=== PATIENT | male | born 1950 | race Caucasian/White ===

== ENCOUNTER 2018-10-16 19:07 | Emergency (ER) | payer MEDICARE, OTHER ==
[2018-10-16] MEDS ORDERED: LIDOCAINE HCL 1% PF 50MG/5ML AMP (IM/SUTURE/PAIN CLINIC) IJ ONE (19:48)
[2018-10-16] MEDS ORDERED: cefTRIAXone SODIUM 1 GM INJ IM ONE (19:48)
--- NOTE | 2018-10-16 19:51 | ED Physician Documentation ---
General Adult - HISTORIAN Historian: patient - HPI Stated Complaint: sore on rt levin Chief Complaint: General Adult Onset: days ago (2) Timing: still present Severity: moderate - ROS CONST: denies: fever EYES/ENT: denies: sore throat CVS/RESP: denies: chest pain, shortness of breath GI/: denies: abdominal pain MS/SKIN/LYMPH: denies: rash NEURO/PSYCH: denies: headache - PAST HX Past History: hypertension Other History: diabetes Type 2 Surgeries/Procedures: none Allergies/Adverse Reactions: Allergies Allergy/AdvReac Type Severity Reaction Status Date / Time No Known Allergies Allergy Verified 10/16/18 19:37 Home Medications: Ambulatory Orders Medication Instructions Recorded Amoxicillin/Potassium Clav 1 each PO BID #14 tablet 10/16/18 [Augmentin 875-125 Tablet] - SOCIAL HX Smoking History: non-smoker Alcohol Use: none Drug Use: none - FAMILY HX Family History: No - VITAL SIGNS Vital Signs: Vital Signs Temp Pulse Resp BP Pulse Ox 98.2 F 84 16 184/81 98 10/16/18 19:07 10/16/18 19:07 10/16/18 19:07 10/16/18 19:07 10/16/18 19:07 - REVIEWED ASSESSMENTS Nursing Assessment Reviewed: Yes Vitals Reviewed: Yes ED Results Lab/Radiology - Orders Orders: ED Orders Category Date Time Status Lidocaine 1% 5ml(IM or SUTURE) [Xylocaine] Med 10/16/18 19:48 Once 50 mg IJ NOW ONE cefTRIAXone SODIUM [Rocephin] Med 10/16/18 19:48 Once 1 gm IM NOW ONE General Adult Physical Exam - PHYSICAL EXAM GENERAL APPEARANCE: no distress EENT: PRAMOD NECK: supple RESPIRATORY: no resp distress, chest non-tender, breath sounds normal CVS: reg rate & rhythm, heart sounds normal ABDOMEN: soft, normal bowel sounds BACK: normal inspection SKIN: warm/dry EXTREMITIES: non-tender, other (right lower extremity with 1 cm round ucleration mid tib/fib ) NEURO: oriented X3, motor nml Discharge Clincal Impression: Diabetic leg ulcer Prescriptions: Amoxicillin/Potassium Clav [Augmentin 875-125 Tablet] 1 each PO BID #14 tablet Referrals: Primary Doctor,No [Primary Care Provider] - 2 Days Additional Instructions: 1. Take antibiotics as directed 2. Tylenol as needed for pain/fever 3. Follow up with Dr. Hidalgo as already scheduled on Thursday 4. Return to ED if wound gets bigger, has more redness or has yellow discharge. Condition: Stable Disposition: 01 HOME, SELF-CARE Decision to Admit: NO Date of Decison to Admit: 10/16/18 Decision Time: 19:54
[2018-10-16 20:31] VITALS: BP 179/83
== END 2018-10-16 20:04 | disposition home or self-care (01) ==
LOC: SUPCPDRO 19:07 → ED 19:07
DX: E11.622 Type 2 diabetes mellitus with other skin ulcer (principal); L97.819 Non-pressure chronic ulcer of other part of right lower leg with unspecified severity
CPT/HCPCS: 96372; 99282; 99283; J0696

== ENCOUNTER 2018-11-17 11:01 | Outpatient (CLI) | payer MEDICARE, OTHER ==
[2018-11-17 11:49] LABS: eGFR (Non-African) > 60
--- NOTE | 2018-11-17 12:33 | Diagnostic Imaging Report ---
SAVANNAH SARMIENTO [facility] [address] [facility] [address] [place] [id number] Report Submission Date: Nov 17, 2018 11:57:56 AM SOUND ENGINEER AUDIO CONTROL Patient Study Name: ANGEL FISCHER Date: Nov 17, 2018 11:19:17 AM SOUND ENGINEER AUDIO CONTROL Modality Type: DX Gender: M Description: PELVIS : 46 Institution: [facility] Physician: SAVANNAH SARMIENTO Examination: Plain film pelvis/right hip History: HIP PAIN, PT STATES HE FEELS IT COMES FROM HIS LOWER BACK, NO TRAUMA Comparison exams: None provided Findings: 3 views of the pelvis and right hip demonstrate normal cortical margins. Mild degenerative spurring. No fracture no dislocation. No soft tissue abnormality. Impression: Mild degenerative spurring. No acute appearing osseous abnormality. Electronically signed on Nov 17, 2018 11:57:56 AM SOUND ENGINEER AUDIO CONTROL by: Timothy SINGH
== END 2018-11-17 11:03 ==
LOC: LAB 11:01
PROVIDERS: ATTEND Family Medicine
DX: E11.9 Type 2 diabetes mellitus without complications (principal); Z12.5 Encounter for screening for malignant neoplasm of prostate; M25.751 Osteophyte, right hip; M25.551 Pain in right hip
CPT/HCPCS: 36415; 73502; 80053; 80061; 83036; G0103

== ENCOUNTER 2019-01-31 11:32 | Day surgery (SDC) | payer MEDICARE, OTHER ==
[~2019-01-31 11:32] MED LIST: LACTATED RINGERS 1,000 ML IV.SOLN IV ONE; LIDOCAINE HCL 2% PF 100MG/5ML VIAL IJ ONE; PROPOFOL 200 MG/20 ML VIAL IV ONE
--- NOTE | 2019-02-10 11:05 | GI Report ---
REFERRING PHYSICIAN: Dr. Hidalgo. PROCEDURE PERFORMED: Colonoscopy and polypectomy. SURGEON: Kala Hester M.D., F.Ab.C.P. INDICATION FOR PROCEDURE: The patient is a 68-year-old referred for screening colonoscopy. There are a number of cancers in the family. The patient has been diabetic for a number of years. He also does have some coronary artery disease. He denies recent chest pain. He does have central obesity. He is 510, weighs 212. Lungs: Clear at present. Heart: Regular. Abdomen: Soft. PROCEDURE MEDICATION: Propofol as per Anesthesia. DESCRIPTION OF PROCEDURE: The Olympus video colonoscope was advanced to the rectum. It was a fairly atonic, redundant colon, and was advanced to the cecum. It was a slow process. In the ascending colon within 3-4 cm of the cecum there was a 4 mm flat polyp removed with a cold snare. The appendiceal orifice was clear. The ileocecal valve was normal. On slow withdrawal through the cecum, ascending colon, no additional lesions noted outside of the polyp from the proximal ascending. The descending colon and sigmoid, again a lot of redundancy. We went back and forth several times and used some lavage. No obvious intraluminal lesions were noted. The patient tolerated the procedure well. FINDINGS: 1. Ascending colon polyp, removed. 2. Atonic, redundant colon, probably related to longstanding diabetes. RECOMMENDATIONS: 1. Would add Benefiber or MiraLAX daily to his diet. 2. Stay on a diabetic diet with increased fruits, vegetables. 3. Pending the pathology of the polyp, consider relooking at his colon in 5 years. KALA HESTER M.D., F.A.C.P. JEFFERY/gin R: 02/10/19 Job#: [id number] Cc: Dr. Hidalgo. [facility]ALTHPatrick
== END 2019-01-31 13:40 | disposition home or self-care (01) ==
LOC: OPSURG 11:32
PROVIDERS: ATTEND Internal Medicine Gastroenterology
DX: Z12.11 Encounter for screening for malignant neoplasm of colon (principal); D12.2 Benign neoplasm of ascending colon; K59.8 Other specified functional intestinal disorders
CPT/HCPCS: 45385; 88305; J2001; J2704; J7120; S1016

== ENCOUNTER 2019-02-16 09:28 | Outpatient (CLI) | payer MEDICARE, OTHER ==
[2019-02-16 09:48] LABS: MEAN CORPUSCULAR HEMOGLOBIN 31.3 pg (28.0-34.0)
[2019-02-16 09:49] LABS: BASOPHILS % 1.3 % (0.0-1.5); EOSINOPHILS % 1.7 % (0.0-6.8); MONOCYTES % 6.1 % (0.0-11.0); NEUTROPHILS # 4.2 # k/uL (1.4-7.7)
[2019-02-16 10:16] LABS: eGFR (Non-African) > 60
== END 2019-02-16 09:30 ==
LOC: LAB 09:28
PROVIDERS: ATTEND Family Medicine
DX: E11.9 Type 2 diabetes mellitus without complications (principal); R10.12 Left upper quadrant pain
CPT/HCPCS: 36415; 80048; 83036; 85025

== ENCOUNTER 2019-02-18 09:20 | Outpatient (CLI) | payer MEDICARE, OTHER ==
--- NOTE | 2019-02-18 21:50 | Diagnostic Imaging Report ---
SAVANNAH SARMIENTO [facility] [address] [facility] [address] [place], [place]. [address] Report Submission Date: Feb 18, 2019 11:01:58 AM CDT Patient Study Name: VAN FISCHER Date: Feb 18, 2019 9:49:51 AM CDT Modality Type: CT\SR Gender: M Description: CT ABD PELVIS W/ CON : 46 Institution: [facility] Physician: SAVANNAH SARMIENTO Exam: CT abdomen and pelvis with contrast. History: Left upper quadrant pain for 2 years. Axial images through the abdomen and pelvis with oral contrast and after IV infusion of 90 mL Omnipaque 300 is submitted along with sagittal coronal reformatted images. Subtle infiltrate in the medial basilar portion of the posterior right lower lung field is noted. No courtney consolidation or effusion is seen. No free intraperitoneal air is identified. The gallbladder is partially distended without stones. The liver and spleen are normal in attenuation and enhancement. The pancreas is normal in configuration with a single punctate calcification noted in its mid body. The adrenal glands are normal configuration. The abdominal aorta is of normal caliber. No periaortic lymphadenopathy is identified. Punctate calcifications in the lower and upper pole of the left kidney is noted. No hydronephrosis or hydroureter is identified. Both kidneys are normal attenuation and enhancement. Urinary bladder is distended without stones. In the left side of pelvis there is a rim calcified low attenuation structure measuring 2.5 x 2.5 x 1.7 cm which may represent a calcified lipoma. Small bowel is of normal caliber. Air and stool seen throughout the large intestine. The appendix is not well visualized. No inflammatory changes in the mesentery or ascites is identified. Bilateral inguinal hernias contain only fat. Degenerative changes in the lower thoracic spine and lower lumbar spine are noted. No other bony abnormalities are identified. Impression: Extremely subtle infiltrate in the medial basilar portion of the visualized posterior right lower lung field. Small calcification noted in the body of the pancreas. Renal stones in the upper and lower pole of the left kidney is noted. No hydronephrosis or hydroureter is identified. Rim calcified low attenuation mass in the left pelvis may represent a calcified lipoma as measured above. Nonspecific bowel gas pattern. No inflammatory changes in the mesentery or ascites is identified. Bilateral inguinal hernias containing only fat. Electronically signed on Feb 18, 2019 11:01:58 AM CDT by: Van SINGH
== END 2019-02-18 09:22 ==
LOC: RAD 09:20
PROVIDERS: ATTEND Family Medicine
DX: R91.8 Other nonspecific abnormal finding of lung field (principal); N20.0 Calculus of kidney; K86.89 Other specified diseases of pancreas; R19.00 Intra-abdominal and pelvic swelling, mass and lump, unspecified site; K40.20 Bilateral inguinal hernia, without obstruction or gangrene, not specified as recurrent; R10.12 Left upper quadrant pain
CPT/HCPCS: 74177; Q9967

== ENCOUNTER 2019-08-18 15:48 | Emergency (ER) | payer MEDICARE, OTHER ==
--- NOTE | 2019-08-18 15:53 | ED Physician Documentation ---
General Adult - HISTORIAN Historian: patient - HPI Stated Complaint: fall, injured R hand, L knee Chief Complaint: General Adult Onset: hours Timing: still present Severity: moderate Further Comments: yes (Pt is a 68 yo male who fell when he did not see the edge of the curb and tried to break his fall with his R outstretched hand. Pt has abrasions on the PIP joints of R hand, and pain in his R thumb. He has an abrasion on his L knee, but no joint problem. He has FROM and no difficulty walking/standing/weight bearing. Tetanus is not utd.) - ROS CONST: no problems EYES/ENT: none CVS/RESP: none GI/: none MS/SKIN/LYMPH: other (abrasions R hand, L knee; R thumb pain) - PAST HX Past History: other (DM, HTN) Surgeries/Procedures: other (ortho surgery) Allergies/Adverse Reactions: Allergies Allergy/AdvReac Type Severity Reaction Status Date / Time sitagliptin phosphate Allergy Verified 08/18/19 16:05 [From Fozia] Home Medications: Ambulatory Orders Medication Instructions Recorded Glimepiride [Amaryl] 4 mg PO D 10/16/18 Metformin HCl 2 tab PO AM 10/16/18 - SOCIAL HX Smoking History: non-smoker - FAMILY HX Family History: No - VITAL SIGNS Vital Signs: Vital Signs Temp Pulse Resp BP Pulse Ox 161/90 03/08/19 15:50 - REVIEWED ASSESSMENTS Nursing Assessment Reviewed: Yes Vitals Reviewed: Yes Progress - Progress Progress: X-ray R hand: lateral and oblique view of the right hand are submitted. A well corticated bony density extends from the base of the 5th distal phalanx which may represent old injury. No other signs of fracture or dislocation is seen. No bony erosions are seen. No soft tissue abnormalities are identified. Impression: No bony abnormality. Tdap 0.5 ml IM in ER General Adult Physical Exam - PHYSICAL EXAM GENERAL APPEARANCE: mild distress NECK: normal inspection, supple RESPIRATORY: no resp distress, chest non-tender, breath sounds normal CVS: reg rate & rhythm, heart sounds normal ABDOMEN: soft, no organomegaly, normal bowel sounds BACK: normal inspection SKIN: other (abrasions over PIP joints of R hand; abrasion L knee; pain R thumb, with eccymosis, mild swelling) NEURO: oriented X3, motor nml, sensation nml Discharge Clincal Impression: R hand sprain, abrasions; knee abrasion Referrals: Mare Hidalgo MD [Primary Care Provider] - Condition: Good Disposition: 01 HOME, SELF-CARE Decision to Admit: NO Decision Time: 16:44
[2019-08-18 16:06] VITALS: BP 128/67
[2019-08-18] MEDS: DIPH,PERTUSS(ACELL),TET VAC/PF 0.5 ML DISP.SYRIN IM ONE (16:45)
--- NOTE | 2019-08-19 16:53 | Diagnostic Imaging Report ---
ARLIN BARDALES [facility] [address] [facility] [address] [address] Report Submission Date: Aug 18, 2019 4:32:54 PM CDT Patient Study Name: VAN FISCHER Date: Aug 18, 2019 4:04:09 PM CDT Modality Type: DX Gender: M Description: HAND 3 VIEWS OR MORE : 46 Institution: [facility] Physician: ARLIN BARDALES Exam: Right hand. History: Pain and lacerations to 2nd and 3rd digits after fall. PA, lateral and oblique view of the right hand are submitted. A well corticated bony density extends from the base of the 5th distal phalanx which may represent old injury. No other signs of fracture or dislocation is seen. No bony erosions are seen. No soft tissue abnormalities are identified. Impression: No bony abnormality. Electronically signed on Aug 18, 2019 4:32:54 PM CDT by: Van SINGH
== END 2019-08-18 16:55 | disposition home or self-care (01) ==
LOC: ED 15:48
DX: S63.92XA Sprain of unspecified part of left wrist and hand, initial encounter (principal); S80.212A Abrasion, left knee, initial encounter; S09.90XA Unspecified injury of head, initial encounter; W19.XXXA Unspecified fall, initial encounter
CPT/HCPCS: 73130; 90715; 99282; 99283

== ENCOUNTER 2019-10-04 08:52 | Outpatient (CLI) | payer MEDICARE, OTHER | END 2019-10-04 08:57 | LOC: LAB 08:52 | PROVIDERS: ATTEND Family Medicine | DX: E11.9 Type 2 diabetes mellitus without complications (principal) | CPT/HCPCS: 36415; 83036 ==